=== PATIENT | female | born 1965 | race Caucasian/White ===

== ENCOUNTER 2019-12-03 09:53 | Emergency (ER) | payer MEDICAID, SELFPAY ==
--- NOTE | 2019-12-03 10:11 | ED.ABDPAIN ---
HPI - Abdominal Pain General Stated Complaint: diarreha x 8 days Time Seen by Provider: 12/03/19 10:11 History of Present Illness HPI narrative: Patient thought we could do labs for her abdominal pain and diarrhea because her doctor wants her to get blood test done prior to seeing her on Thursday. So, she decided to go home and called her doctor and go from there. She appears clinical stable and in no distress, mentally competed. I did not do a complete physical examine except general inspected at registration. Related Data Allergies Allergy/AdvReac Type Severity Reaction Status Date / Time loratadine Allergy Mild PALPITATION Verified 03/27/18 13:47 S [facility] Family History Family History (Updated 02/08/16 @ 23:19 by DOCTOR UNKNOWN) Mother Hypertension Family history of elevated blood lipids Father Family history of diabetes mellitus in first degree relative Other Diabetes mellitus Social History Social History Alcohol intake: never Discharge Plan Discharge Patient Disposition: Left Without Being Seen Condition: Stable Follow-up/Referrals: Drummond,Louann Cardoso APN [Primary Care Provider] -
== END 2019-12-03 10:04 | disposition left against medical advice (07) ==
PROVIDERS: PCP Nurse Practitioner Family
DX: Z53.21 Procedure and treatment not carried out due to patient leaving prior to being seen by health care provider (principal)
CPT/HCPCS: 99199